=== PATIENT | female | born 1995 | race Caucasian/White ===

== ENCOUNTER 2017-12-14 23:13 | Emergency (ER) | payer BC ==
[2017-12-15] MEDS ORDERED: Ciproflox/Dexameth OTIC.SUSP* 7.5 ML BTL RIGHT EAR ONE (00:27)
[2017-12-15 00:28] VITALS: BP 118/66
--- NOTE | 2017-12-15 00:29 | ED ---
Throat Pain/Nasal Congestion - HPI Summary HPI Summary: 22F presents with right ear pain today. She denies any drainage from ears. She has history of ear infections when was little. She admits to sinus congestion and sore throat. She denies any fevers. She denies getting anything into her ears. She was given Tylenol for her pain. She denies any bowel pain. She denies any chest pain or shortness. - History of Current Complaint Chief Complaint: EDEarPain Time Seen by Provider: 12/15/17 00:22 - Allergies/Home Medications Allergies/Adverse Reactions: Allergies Allergy/AdvReac Type Severity Reaction Status Date / Time Penicillins Allergy Rash Verified 12/14/17 23:17 PMH/Surg Hx/FS Hx/Imm Hx Endocrine/Hematology History: Denies: Hx Anticoagulant Therapy Cardiovascular History: Denies: Hx Hypertension Infectious Disease History: No Infectious Disease History: Denies: Traveled Outside the [place] in Last 30 Days - Family History Known Family History: Positive: Hypertension - Social History Alcohol Use: None Substance Use Type: Reports: None Smoking Status (MU): Never Smoked Tobacco Review of Systems Negative: Fever Positive: Sore Throat, Ear Ache Negative: Chest Pain Negative: Shortness Of Breath All Other Systems Reviewed And Are Negative: Yes Physical Exam Triage Information Reviewed: Yes Vital Signs On Initial Exam: Initial Vitals Temp Pulse Resp BP Pulse Ox 97.1 F 86 16 117/67 98 12/14/17 23:17 12/14/17 23:17 12/14/17 23:17 12/14/17 23:17 12/14/17 23:17 Vital Signs Reviewed: Yes Appearance: Positive: Well-Appearing Skin: Positive: Warm, Dry Head/Face: Positive: Normal Head/Face Inspection Eyes: Positive: Normal, EOMI, WANDA, Conjunctiva Clear ENT: Positive: Pharynx normal, TMs normal - with fluid, Other - pain with manipulation of tragus, canal edematous and erythematous right Neck: Positive: Supple, Nontender, No Lymphadenopathy Respiratory/Lung Sounds: Positive: Clear to Auscultation, Breath Sounds Present Cardiovascular: Positive: Normal, RRR Abdomen Description: Positive: Nontender, Soft Bowel Sounds: Positive: Present Musculoskeletal: Positive: Normal Neurological: Positive: Normal Psychiatric: Positive: Normal Diagnostics - Vital Signs Vital Signs Temp Pulse Resp BP Pulse Ox 02/17/18 00:23 98.8 F 80 16 118/66 98 12/14/17 23:17 97.1 F 86 16 117/67 98 - Laboratory Lab Statement: Any lab studies that have been ordered have been reviewed, and results considered in the medical decision making process. EENT Course/Dx - Course Course Of Treatment: 22F presents with right ear pain today. She denies any drainage from ears. She has history of ear infections when was little. She admits to sinus congestion and sore throat. She denies any fevers. She denies getting anything into her ears. She was given Tylenol for her pain. She denies any bowel pain. She denies any chest pain or shortness. On exam TMs normal fluid behind them. Pharynx normal. Uvula midline. Soft palate symmetric. Right ear canal is erythematous and edematous. Positive pain with manipulation of tragus. Will treat with Ciprodex. Patient understands and agrees with plan. - Differential Diagnoses Differential Diagnoses: Otitis Externa, Otitis Media, URI/Bronchitis - Diagnoses Provider Diagnoses: Right otitis externa Discharge - Discharge Plan Condition: Good Disposition: HOME Patient Education Materials: Otitis Externa (ED) Referrals: No Primary Care Phys,NOPCP [Primary Care Provider] - Additional Instructions: Use 4 drops twice a day for 7 days can use sudafed for nasal congestion and for fluid behind ears Follow up with primary in a week to make sure resolving Return to ED if develop any new or worsening symptoms
== END 2017-12-15 00:35 | disposition home or self-care (01) ==
LOC: ED 23:13
DX: H60.91 Unspecified otitis externa, right ear (principal); Z88.0 Allergy status to penicillin
CPT/HCPCS: 99282; A9270-GY